=== PATIENT | female | born 1965 | race Caucasian/White ===

== ENCOUNTER 2017-04-23 00:23 | Emergency (ER) | payer SELFPAY ==
[2017-04-23 00:29] VITALS: BMI 28.9
[2017-04-23 00:33] VITALS: BP 116/61; RESP 18; TEMP 99.3; O2SAT 97
[2017-04-23 00:34] VITALS: PULSE 64
--- NOTE | 2017-04-23 00:57 | ED PDOC ---
Arrival/HPI - General Chief Complaint: Flu-like Symptoms Time Seen by Provider: 04/23/17 00:39 Historian: Patient - History of Present Illness Narrative History of Present Illness (Text): 04/23/17 00:48 52 year old female, whose past medical history includes hypertension, presents to the emergency department complaining of flu-like symptoms for the past couple of days. Patient reports having a dry cough, chills, subjective fever, and occasional nausea, but denies any abdominal pain, chest pain, shortness of breath, abdominal pain, vomiting, diarrhea, neck pain, back pain, headache, dizziness, or any other complaints. Time/Duration: Other (couple of days ) Symptom Onset: Gradual Symptom Course: Unchanged Activities at Onset: Light Context: Home Past Medical History - Provider Review Nursing Documentation Reviewed: Yes - Cardiac Hx Hypertension: Yes - Pulmonary Hx Respiratory Disorders: No - Neurological Hx Neurological Disorder: No - HEENT Hx HEENT Disorder: No - Renal Hx Renal Disorder: No - Endocrine/Metabolic Hx Endocrine Disorders: No - Hematological/Oncological Hx Blood Disorders: No - Integumentary Hx Dermatological Disorder: No - Musculoskeletal/Rheumatological Hx Musculoskeletal Disorders: No - Gastrointestinal Hx Gastrointestinal Disorders: No - Genitourinary/Gynecological Hx Genitourinary Disorders: No - Psychiatric Hx Psychophysiologic Disorder: No Hx Substance Use: No - Anesthesia Hx Anesthesia: Yes Family/Social History - Physician Review Nursing Documentation Reviewed: Yes Family/Social History: No Known Family HX Smoking Status: Never Smoked Hx Alcohol Use: No Hx Substance Use: No Allergies/Home Meds Allergies/Adverse Reactions: Allergies No Known Allergies Allergy (Verified 04/23/17 00:29) Review of Systems - Physician Review All systems were reviewed & negative as marked: Yes - Review of Systems Constitutional: Fevers, Other (Chills) Respiratory: Cough. absent: SOB Cardiovascular: absent: Chest Pain Gastrointestinal: Nausea. absent: Abdominal Pain, Diarrhea, Vomiting Musculoskeletal: absent: Back Pain, Neck Pain Neurological: absent: Headache, Dizziness Physical Exam Vital Signs Reviewed: Yes Vital Signs Temp Pulse Resp BP Pulse Ox 04/23/17 00:33 99.3 F 64 18 116/61 97 04/23/17 00:29 99.3 F 63 18 116/61 97 Temperature: Afebrile Blood Pressure: Normal Pulse: Regular Respiratory Rate: Normal Appearance: Positive for: Well-Appearing, Non-Toxic, Comfortable Pain Distress: None Mental Status: Positive for: Alert and Oriented X 3 - Systems Exam Head: Present: Atraumatic, Normocephalic Pupils: Present: PERRL Extroacular Muscles: Present: EOMI Conjunctiva: Present: Normal Mouth: Present: Moist Mucous Membranes Nose (Internal): Present: Rhinorrhea Neck: Present: Normal Range of Motion Respiratory/Chest: Present: Rhonchi (Few Rhonchi). No: Respiratory Distress, Accessory Muscle Use Cardiovascular: Present: Regular Rate and Rhythm, Normal S1, S2. No: Murmurs Abdomen: Present: Normal Bowel Sounds. No: Tenderness, Distention, Peritoneal Signs Back: Present: Normal Inspection Upper Extremity: Present: Normal Inspection. No: Cyanosis, Edema Lower Extremity: Present: Normal Inspection. No: Edema Neurological: Present: GCS=15, CN II-XII Intact, Speech Normal Skin: Present: Warm, Dry, Normal Color. No: Rashes Psychiatric: Present: Alert, Oriented x 3, Normal Insight, Normal Concentration Medical Decision Making ED Course and Treatment: 04/23/17 00:48 Impression: 52 year old female presents complaining of flu-like symptoms consisting of dry cough, chills, subjective fever, and occasional nausea that began a few days ago. Plan: -- Labs -- Chest X-ray -- Tylenol 325mg tab -- Influenza A B -- Reassess and disposition Progress Notes: 04/23/17 02:22 CXR Impression: As read by me, no acute processes. - Lab Interpretations Lab Results: 04/23/17 00:50 04/23/17 00:50 Lab Results 04/23/17 00:50: WBC 4.3 L, RBC 3.99, Hgb 8.6 L, Hct 30.0 L, MCV 75.2 L, MCH 21.6 L, MCHC 28.7 L, RDW 17.7 H, Plt Count 197, MPV 10.3 04/23/17 00:50: Sodium 138, Potassium 3.7, Chloride 100, Carbon Dioxide 27, Anion Gap 15, BUN 12, Creatinine 1.0, Est GFR ( Amer) > 60, Est GFR (Non- Af Amer) 59, Random Glucose 107, Calcium 9.5, Total Bilirubin 0.2, AST 33, ALT 40, Alkaline Phosphatase 45, Total Protein 7.4, Albumin 4.1, Globulin 3.3, Albumin/Globulin Ratio 1.3 04/23/17 00:50: Influenza Typ A,B (EIA) Pos for influenza a H I have reviewed the lab results: Yes - RAD Interpretation Radiology Orders: 04/23/17 00:44 CHEST PORTABLE [RAD] Stat - Medication Orders Current Medication Orders: Discontinued Medications Acetaminophen (Tylenol 325mg Tab) 650 mg PO STAT STA Stop: 04/23/17 00:49 Last Admin: 04/23/17 01:22 Dose: 650 mg MAR Pain/Vitals Document 04/23/17 01:22 AD (Rec: 04/23/17 01:22 AD [facility] [place]-[id number]) Pain Reassessment Is This A Pain ReAssessment? No Location Pain Location Body Site Generalized Intensity 5 - Scribe Statement The provider has reviewed the documentation as recorded by the Scribe Shira Ratliff Provider Scribe Attestation: All medical record entries made by the Scribe were at my direction and personally dictated by me. I have reviewed the chart and agree that the record accurately reflects my personal performance of the history, physical exam, medical decision making, and the department course for this patient. I have also personally directed, reviewed, and agree with the discharge instructions and disposition. Disposition/Present on Arrival - Present on Arrival Any Indicators Present on Arrival: No History of DVT/PE: No History of Uncontrolled Diabetes: No Urinary Catheter: No History of Decub. Ulcer: No History Surgical Site Infection Following: None - Disposition Have Diagnosis and Disposition been Completed?: Yes Diagnosis: Influenza Disposition: HOME/ ROUTINE Disposition Time: 02:23 Patient Plan: Discharge Condition: GOOD Discharge Instructions (ExitCare): Influenza (ED) Additional Instructions: Rest/drink plenty of liquids/take meds as prescribed/Tylenol fo fever as directed/follow up with your doctor this week Prescriptions: Oseltamivir [Tamiflu] 75 mg PO BID #10 cap Azithromycin [Zithromax] 250 mg PO DAILY #6 tab Forms: [facility] ([place]), WORK NOTE
[2017-04-23 01:23] LABS: HEMOGLOBIN 8.6 g/dL (12.0-16.0); MEAN CELL VOLUME 75.2 fl (80.0-105.0); MEAN CORPUSCULAR HEMOGLOBIN 21.6 pg (25.0-35.0); MEAN CORPUSCULAR HGB CONC 28.7 g/dl (31.0-37.0); MEAN PLATELET VOLUME 10.3 fl (7.0-11.0); RBC 3.99 10^6/uL (3.5-6.1); RED CELL DISTRIBUTION WIDTH 17.7 % (11.5-14.5); WHITE BLOOD COUNT 4.3 10^3/ul (4.5-11.0)
[2017-04-23 01:33] LABS: ALB/GLOB RATIO 1.3 (1.1-1.8); ALBUMIN 4.1 g/dL (3.0-4.8); ALT/SGPT 40 U/L (7-56); AST/SGOT 33 U/L (14-36); BLOOD UREA NITROGEN 12 mg/dL (7-21); CALCIUM 9.5 mg/dL (8.4-10.5); GFR AFRICAN-AMERICAN > 60; GFR NON-AFRICAN AMERICAN 59
--- NOTE | 2017-04-23 08:44 | RAD ---
HISTORY: cough COMPARISON: No prior. FINDINGS: LUNGS: No active pulmonary disease. PLEURA: No significant pleural effusion identified, no pneumothorax apparent. CARDIOVASCULAR: Normal. OSSEOUS STRUCTURES: No significant abnormalities. VISUALIZED UPPER ABDOMEN: Normal. OTHER FINDINGS: None. IMPRESSION: No active disease.
== END 2017-04-23 02:30 | disposition home or self-care (01) ==
LOC: ED 00:23
DX: J11.1 Influenza due to unidentified influenza virus with other respiratory manifestations (principal); I10 Essential (primary) hypertension